=== PATIENT | female | born 1995 | race Caucasian/White ===

== ENCOUNTER 2021-09-18 09:48 | Emergency (ER) | payer OTHER, SELFPAY ==
--- NOTE | 2021-09-18 10:06 | HMH.EDUTC ---
[facility] Disposition Clinical Impression: Viral syndrome Sinusitis Qualifiers: Sinusitis location: unspecified location Chronicity: acute Recurrence: non-recurrent Qualified Code(s): J01.90 - Acute sinusitis, unspecified Disposition: Home, Self-Care Condition on Discharge: Good Instructions: Sinusitis, DI for Sinusitis, Preventing the Spread of Coronavirus Discharge Instructions Additional Instructions: Drink plenty of fluids. Take tylenol or ibuprofen for pain or fever. Take the medications as directed. Follow up with your regular doctor. GO TO THE ER FOR ANY WORSENING SYMPTOMS Quarantine until you know the results of your covid-19 test. Notify your school or workplace of your results and follow their instructions regarding return to work/school. Prescriptions: Brompheniramine/Pseudoephed/Dm [Bromfed Dm Cough Syrup] 5 ml PO Q6HP PRN #240 ml PRN Reason: Cough Transmission Status: Received by [facility] #[id number] methylPREDNISolone [Medrol] 4 mg PO DIRECTED 6 Days #21 packet Transmission Status: Received by [facility] #[id number] Azithromycin [Z-Mat 250mg Tab*] 250 mg PO UD DOSE PK #6 tab Transmission Status: Received by [facility] #[id number] Referrals: Peter Perez MD [Primary Care Provider] - Forms: Work/School Release Time of Disposition: 10:10 Medical Decision Making - Medical Records Medical records reviewed: No: I reviewed the patient's medical records. - Ivan Inquiry Pt receiving controlled substance: No Vital Signs: 09/18/21 10:16 09/18/21 10:19 Temperature 97.5 F L 97.5 F L Temperature Source Oral Pulse Rate 69 Pulse Rate [Left Radial] 69 Respiratory Rate 18 18 Blood Pressure 106/57 L Blood Pressure [Right Arm] 106/57 L Blood Pressure Mean [Right Arm] 73 02 Sat by Pulse Oximetry 96 - Lab Data Lab results reviewed: Yes: I reviewed the patient's lab results. Orders (Tests/Meds): ORDERS Category Date Time Status Covid-19 Nasal PCR ([facility]) Routine Lab 09/18/21 10:10 Received [facility] HPI - General Stated complaint: nasal congestion, loss of smell, sinus pressure Time Seen by Provider: 09/18/21 10:06 - History of Present Illness Provider Complaint: She states that for the past 5 days, she has had bilateral ear pain, sinus congestion that is bad on both sides but worse on the left, headache, sore throat and poor appetite. - Related Data Previous Rx's Medication Instructions Recorded Albuterol Sulfate [Albuterol HFA 1 - 2 puffs IH Q4-6H PRN #1 inh 01/02/19 Inhaler] Azithromycin [Zithromax 500mg Tab 500 mg PO DAILY #3 tab 01/02/19 Tri-Mat] Azithromycin [Z-Mat 250mg Tab*] 250 mg PO UD DOSE PK #6 tab 09/18/21 Brompheniramine/Pseudoephed/Dm 5 ml PO Q6HP PRN #240 ml 09/18/21 [Bromfed Dm Cough Syrup] methylPREDNISolone [Medrol] 4 mg PO DIRECTED 6 Days #21 09/18/21 packet Allergies Allergy/AdvReac Type Severity Reaction Status Date / Time No Known Drug Intolerances Allergy Unknown NA Verified 09/18/21 10:19 [facility] History - Hepatitis A Screen Attestation statement:: This patient has been screened for Hepatitis A risk factors. I have reviewed the patient's past medical history: Yes - Social History Smoking Status: Current every day smoker Tobacco Type: cigarettes # Packs/Day (cigarettes): 0 Alcohol Intake: never Occupational Status: other Housing: other ROS Obtained: Yes All systems reviewed & no additional complaints - Constitutional Constitutional: Reports as per HPI - Eyes Eyes: Denies eye discharge - ENT Ears, Nose, Mouth, and Throat: Reports as per HPI - Cardiovascular Cardiovascular: Denies chest pain - Respiratory Respiratory: Denies chest congestion, Reports cough, Denies dyspnea, Denies stridor, Denies wheezing - Gastrointestinal Gastrointestingal: Denies: abdominal pain, diarrhea, nausea, vomiting Physical Exam - General General appearance: alert, in no
[2021-09-18 10:16] VITALS: BP 106/57; PULSE 69; RESP 18; TEMP 36.4; O2SAT 96; BMI 26.4
[2021-09-18 10:19] VITALS: BP 106/57; PULSE 69; RESP 18; TEMP 36.4
== END 2021-09-18 10:20 | disposition home or self-care (01) ==
PROVIDERS: Emergency Provider Nurse Practitioner Family; PCP Internal Medicine Adolescent Medicine
DX: J01.90 Acute sinusitis, unspecified (principal); B34.9 Viral infection, unspecified
CPT/HCPCS: 99212; C9803; G0463; U0003; U0005

== ENCOUNTER 2022-07-20 13:01 | Emergency (ER) | payer OTHER, SELFPAY ==
[2022-07-20 13:15] VITALS: BP 110/65; PULSE 65; RESP 20; TEMP 36.9; O2SAT 100; BMI 22.6
--- NOTE | 2022-07-20 13:37 | EXP.UTC ---
Discharge Plan Disposition Patient Disposition: Home, Self-Care Condition: Good Prescriptions Prescriptions: New azithromycin [Zithromax Z-Mat] 250 mg tablet See Rx Instructions .ROUTE .COMPLEX 5 Days Qty: 6 0RF Rx Instructions: For 250 mg dose pack: take 500 mg today (day 1), then 250 mg for 4 days (days 2-5) Referrals Follow up/Referrals: Peter Perez MD [Primary Care Provider] - See instructions Activity Restrictions/Add. Instructions Additional Instructions/Restrictions: *Monitor Temp, Over the counter Motrin or Tylenol as directed/as needed Tylenol every 4 hours and Motrin every 6 hours (as long as your family doctor has told you that you can take it) for fever or pain. and straight to ER if unable to lower temp less than 101.0 after medication given *Warm salt water gargles may help to soothe the throat *Throat Lozenges? *Warm fluids like tea with honey may help to soothe the throat? *Sleep elevated *Humidifier/Vaporizer Your throat swab was sent for culture. Those results are typically sent to your primary care. Be sure to follow up in 2-3 days with your family doctor/primary care physician if no improvement so they can review those result and treat if necessary. If you don?t have a primary care doctor, I recommend you get one but in the mean time, you will have to return to a walk in clinic Follow up IMMEDIATELY for new or worsening symptoms or no Noticeable improvement over the next 48-72 hours. 911 for difficulty breathing or swallowing Clinical Impressions Clinical Impression: Pharyngitis Instructions Patient Instructions: Sore Throat Discharge ED Provider: Colette Kelley [facility] HPI General Stated complaint: Sore throat, cough Mode of Arrival: Ambulatory Source of Information: Patient Limitations: No Limitations Time Seen by Provider: 07/20/22 13:37 Description of Symptoms (Recalled from Triage Doc. by RN): PATIENT C/O SORE THROAT AND COUGH THAT STARTED THIS MORNING. RECENTLY EXPOSED TO STREP HEENT Symptoms (Recalled from RN notes): Yes Resp Symptoms (Recalled from RN notes): Yes Skin Symptoms (Recalled from RN notes): No MS Symptoms (Recalled from RN notes): No Functional Status (Recalled from RN notes): WNL History of Present Illness Provider Complaint: Patient states that both her children have strep throat and this morning she started with sore throat States that hurts when she swallows and has got worse throughout today Related Data Previous Rx's Medication Instructions Recorded azithromycin 250 mg tablet See Rx Instructions PO .COMPLEX 5 07/20/22 (Zithromax Z-Mat) days #6 tabs Allergies Allergy/AdvReac Type Severity Reaction Status Date / Time No Known Drug Intolerances Allergy Unknown NA Verified 09/18/21 10:19 Worker's Comp Is this a Worker's Comp case?: No [facility] Disclaimer: The information contained in this section may have been updated after the patient was seen, as this information can be updated by other users. Social History Smoking Status: Current every day smoker tobacco type: cigarettes packs per day: 0 alcohol intake: never current occupational status: other Travel in the last 8 weeks: None housing: other ROS Obtained: Yes All systems reviewed & no additional complaints except as documented and Yes Systems reviewed as appropriate & no additional complaints except as documented Constitutional Constitutional: Reports system reviewed and no additional complaints, except as documented and Reports as per HPI ENT Ears, Nose, Mouth, and Throat: Reports system reviewed and no additional complaints, except as documented, Reports as per HPI and Reports sore throat Cardiovascular Cardiovascular: Reports system reviewed and no additional complaints, except as documented and Reports as per HPI Respiratory Respiratory: Reports system reviewed and no additional complaints, except as documented and Reports as per HPI Physical
[2022-07-20 13:43] LABS: UTC Strep Screen (Rapid) Negative (Negative)
[2022-07-20 13:44] VITALS: BP 110/65; PULSE 65; RESP 20; TEMP 36.9; O2SAT 100
== END 2022-07-20 13:45 | disposition home or self-care (01) ==
PROVIDERS: Emergency Provider Nurse Practitioner; PCP Internal Medicine Adolescent Medicine
DX: J02.9 Acute pharyngitis, unspecified (principal); F17.210 Nicotine dependence, cigarettes, uncomplicated
CPT/HCPCS: 87880; 99212; 99214; G0463

== ENCOUNTER → 2022-08-30 09:59 | Outpatient (CLI) | payer OTHER, SELFPAY ==
--- NOTE | 2022-08-30 09:59 | US_ITS ---
FINAL REPORT CLINICAL HISTORY: pelvic pain FINDINGS: Transvaginal sonographic images of the pelvis were obtained. The uterus measures 9.5 x 4.8 x 5.0 cm. There is a questionable small calcification in the uterus. The endometrium measures 9 mm. The right ovary is normal measuring up to 3.4 cm. The left ovary is normal measuring up to 2.8 cm. There are small follicles in both ovaries. No free fluid is identified. IMPRESSION: Pelvic ultrasound is within normal limits. Reviewed, Interpreted and Dictated by Marcus Sandoval III, MD Transcribed by Linda Salas Authenticated and [facility]
== END ==
LOC: RAD 09:59
PROVIDERS: PCP Internal Medicine Adolescent Medicine; Visit Provider Obstetrics & Gynecology
DX: R10.2 Pelvic and perineal pain (principal)
CPT/HCPCS: 76830

== ENCOUNTER 2023-01-24 08:07 | Emergency (ER) | payer OTHER, SELFPAY ==
[2023-01-24 08:14] VITALS: BP 118/68; PULSE 73; O2SAT 99
[2023-01-24 08:18] VITALS: BP 118/68; PULSE 72; RESP 18; TEMP 36.9; O2SAT 98; BMI 24.4
[2023-01-24 08:33] VITALS: BP 93/71; PULSE 83; O2SAT 99
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
[2023-01-24 08:46] VITALS: BP 93/71; PULSE 83; RESP 16; TEMP 36.9
== END 2023-01-24 08:46 | disposition home or self-care (01) ==
PROVIDERS: Emergency Provider Student in an Organized Health Care Education/Training Program; PCP Internal Medicine Adolescent Medicine
DX: S63.92XA Sprain of unspecified part of left wrist and hand, initial encounter (principal); V49.9XXA Car occupant (driver) (passenger) injured in unspecified traffic accident, initial encounter; F17.290 Nicotine dependence, other tobacco product, uncomplicated; J45.909 Unspecified asthma, uncomplicated
CPT/HCPCS: 99283

== ENCOUNTER → 2023-01-31 09:34 | Outpatient (CLI) | payer OTHER, SELFPAY ==
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
== END ==
LOC: RAD 09:35
PROVIDERS: PCP Internal Medicine Adolescent Medicine; Visit Provider Orthopaedic Surgery
DX: M25.532 Pain in left wrist (principal); S63.502A Unspecified sprain of left wrist, initial encounter; S63.635A Sprain of interphalangeal joint of left ring finger, initial encounter
CPT/HCPCS: 73110; 73130

== ENCOUNTER → 2023-02-22 07:23 | Outpatient (CLI) | payer OTHER, SELFPAY ==
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
== END ==
LOC: RAD 07:23
PROVIDERS: PCP Internal Medicine Adolescent Medicine; Visit Provider Orthopaedic Surgery
DX: S63.502A Unspecified sprain of left wrist, initial encounter (principal); M79.642 Pain in left hand
CPT/HCPCS: 73218; 73221

== ENCOUNTER 2024-04-29 08:50 | Emergency (ER) | payer OTHER, SELFPAY ==
[2024-04-29 08:51] VITALS: BP 132/77; PULSE 80; RESP 16; TEMP 36.6; O2SAT 99; BMI 24.7
--- NOTE | 2024-04-29 08:55 | PC.NURSE ---
pt hooked to monitor, call light within reach at BS
[2024-04-29 08:57] VITALS: BP 113/69; PULSE 70; RESP 16; O2SAT 100
--- NOTE | 2024-04-29 09:07 | PC.NURSE ---
ROUNDED ON PT, NO NEEDS AT THIS TIME. CALL LIGHT WITHIN REACH
--- NOTE | 2024-04-29 09:19 | XR_ITS ---
FINAL REPORT CLINICAL HISTORY: injury COMPARISON: None FINDINGS: LEFT FOOT: There is a lucency in the medial aspect of the navicular that may represent a nondisplaced navicular fracture. The joint spaces are intact. There is no soft tissue abnormality. IMPRESSION: Lucency in the medial aspect of the navicular that may represent a nondisplaced fracture. Reviewed, Interpreted and Dictated by Nick Martines MD Transcribed by Lynn Vee Authenticated and [facility]
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
[2024-04-29 10:27] VITALS: BP 105/70; PULSE 57; RESP 16; TEMP 36.8; O2SAT 100
== END 2024-04-29 10:28 | disposition home or self-care (01) ==
PROVIDERS: Emergency Provider Emergency Medicine; PCP Internal Medicine Adolescent Medicine
DX: M79.672 Pain in left foot (principal); W22.8XXA Striking against or struck by other objects, initial encounter
CPT/HCPCS: 73620; 99283